=== PATIENT | female | born 2000 | race Caucasian/White ===

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

== ENCOUNTER 2022-10-28 12:22 | Emergency (ER) | payer BC ==
[2022-10-28] MEDS ORDERED: diphenhydrAMINE 50 MG/ML VIAL ONE (15:36)
[2022-10-28] MEDS ORDERED: Clindamycin/D5W 600 mg/50 ml Premix Bag ONE (15:36)
[2022-10-28] MEDS ORDERED: Ketorolac Tromethamine 30 MG/ML VIAL ONE (15:36)
[2022-10-28 16:10] LABS: #Basophils 0.1 thou/uL (0.0-0.2); #Eosinphils 0.4 thou/uL (0.0-0.7); #Lymphocytes 2.9 thou/uL (1.20-3.40); #Monocytes 0.7 thou/uL (0.11-0.59); #Neutrophils 5.2 thou/uL (1.40-6.50); %Basophils 0.8 % (0.0-1.0); %Lymphocytes 30.9 % (28.0-48.0); %Monocytes 7.6 % (0.0-4.0); %Neutrophils 56.7 % (31.0-61.0); Hemoglobin 13.4 g/dL (12.0-16.0); Mean Corpuscular HGB CONC 33.2 g/dL (32.0-36.0); Mean Corpuscular Hemoglobin 26.7 pg (25.0-35.0); Mean Corpuscular Volume 80.3 fl (78.0-98.0); Mean Platelet Volume 8.3 fL (7.4-10.4); Platelet Count 358 10x3/uL (130-400); RBC Distribution Width 12.2 % (11.5-14.5); Red Blood Cell (RBC) Count 5.04 mill/uL (4.00-5.20); White Blood Cell (WBC) Count 9.2 10x3/uL (4.8-10.8)
[2022-10-28 16:35] LABS: ALT (SGPT) 24 U/L (8-55); AST (SGOT) 19 U/L (5-30); Albumin 4.4 g/dL (3.5-5.0); Alkaline Phosphatase 108 U/L (40-100); Anion Gap 14 mmol/L (10-20); BUN (Urea Nitrogen) 13 mg/dL (8.4-21.0); Bilirubin, Total 0.5 mg/dL (0.2-1.2); Calc. Creatinine Clearance 0 mL/min (70-130); Calcium 9.6 mg/dL (7.8-10.44); Carbon Dioxide 24 mmol/L (22-29); Chloride 101 mmol/L (98-107); Estimated GFR 109; Globulin 3.9 g/dL (2.4-3.5); Glucose 87 mg/dL (70-105); Potassium 3.7 mmol/L (3.5-5.1); Protein, Total 8.3 g/dL (6.0-8.3); Sodium 135 mmol/L (136-145)
== END 2022-10-28 17:19 | disposition home or self-care (01) ==
LOC: ERS 12:22
DX: T22.211A Burn of second degree of right forearm, initial encounter (principal); I10 Essential (primary) hypertension
CPT/HCPCS: 80053; 83605; 85025; 96365; 96375; J1200; J1885; J3490